=== PATIENT | female | born 1980 | race Caucasian/White ===

== ENCOUNTER 2017-12-07 14:18 | Emergency (ER) | payer OTHER ==
[2017-12-07] MEDS ORDERED: SODIUM CHLORIDE 0.9% 1,000 ML IV ONE (18:32)
[2017-12-07 18:52] LABS: Basophils # (A) 0.1 k/uL (0-0.2); Basophils % (A) 1 %; Eosinophils # (A) 0.1 k/uL (0-0.7); Eosinophils % (A) 0 %; HCT 30.2 % (34.0-46.0); HGB 9.8 gm/dL (11.4-16.0); Lymphocytes # (A) 0.9 k/uL (1.0-4.8); Lymphocytes % (A) 6 %; MCH 27.5 pg (25.0-35.0); MCHC 32.4 g/dL (31.0-37.0); Mean Platelet Volume 6.8; Monocytes # (A) 0.5 k/uL (0-1.0); Monocytes % (A) 3 %; Neutrophils # (A) 13.8 k/uL (1.3-7.7); Neutrophils % (A) 89 %; Platelet Count 313 k/uL (150-450); RBC 3.56 m/uL (3.80-5.40); RDW 15.3 % (11.5-15.5); WBC 15.5 k/uL (3.8-10.6)
[2017-12-07 19:00] LABS: Calcium 8.7 mg/dL (8.4-10.2); Potassium 4.3 mmol/L (3.5-5.1)
[2017-12-07 19:33] VITALS: BP 141/64; PULSE 92; RESP 18; TEMP 99.7
--- NOTE | 2017-12-07 19:34 | XR ---
EXAMINATION TYPE: XR toes LT DATE OF EXAM: 12/07/2017 COMPARISON: 09/21/2017 HISTORY: Amputation TECHNIQUE: 3 views FINDINGS: There is soft tissue swelling of the forefoot. There is amputation of the third digit at th e level of the base of the proximal phalanx. There is significant arthritic change in the big toe. I see no focal bone destruction to suggest osteomyelitis. IMPRESSION: Significant soft tissue swelling. There is a new amputation of the third toe. No definite sign of osteomyelitis.
--- NOTE | 2017-12-07 20:02 | ED ---
General Adult HPI - General Chief complaint: Fever Stated complaint: Fever Time Seen by Provider: 12/07/17 17:16 Source: patient Mode of arrival: ambulatory Limitations: no limitations - History of Present Illness Initial comments: 36-year-old female with recent history of third phalanx indication on the left foot on 12/04/17% for evaluation of subjective fevers. She states that she was feeling feverish at work and was informed by her ID specialist Dr. Elizabeth that she should come to the ED if she should ever become febrile or have signs of infection. She states she saw him a week ago and has another appointment this . Denies taking her temperature during this time. Denies associated symptoms. - Related Data Home Medications Medication Instructions Recorded Confirmed Insulin Aspart Protam & Aspart 30 unit SQ BID-W/MEALS 10/30/17 12/07/17 [NovoLOG MIX 70-30 Flexpen] Levothyroxine Sodium [Synthroid] 175 mcg PO DAILY 10/30/17 12/07/17 Previous Rx's Medication Instructions Recorded Insulin Aspart [NovoLOG Flexpen] 8 units SQ AC-TID #0 11/07/17 metroNIDAZOLE [Flagyl] 500 mg PO Q8HR #21 tab 12/07/17 Allergies Allergy/AdvReac Type Severity Reaction Status Date / Time sulfamethoxazole Allergy Rash/Hives Verified 12/07/17 17:40 [From Bactrim] trimethoprim [From Bactrim] Allergy Rash/Hives Verified 12/07/17 17:40 Review of Systems ROS Statement: Those systems with pertinent positive or pertinent negative responses have been documented in the HPI. ROS Other: All systems not noted in ROS Statement are negative. Constitutional: Reports: fever (subjective). Denies: chills Eyes: Denies: eye pain, eye discharge ENT: Denies: ear pain, throat pain Respiratory: Denies: cough, dyspnea Cardiovascular: Denies: chest pain, palpitations Endocrine: Denies: fatigue, polydipsia, polyuria Gastrointestinal: Denies: abdominal pain, nausea, vomiting Genitourinary: Denies: urgency, dysuria Musculoskeletal: Denies: back pain, arthralgia Skin: Denies: rash, lesions Neurological: Denies: headache, weakness Psychiatric: Denies: anxiety, depression Hematological/Lymphatic: Denies: easy bleeding, easy bruising Past Medical History Past Medical History: Diabetes Mellitus, Hypertension, Thyroid Disorder Additional Past Medical History / Comment(s): bilateral leg lymphedema, sepsis from infection in left foot, sandhu on head with MRSA 2017. 11/09/17 RECENTLY DISCHARGED FROM HOSPITAL WITH INFECTION&AMPUTATION OF LEFT MIDDLE TOE. History of Any Multi-Drug Resistant Organisms: MRSA Date of last positivie culture/infection: 11/01/17 MDRO Source:: MIDDLE TOE ON LEFT FOOT. Past Surgical History: No Surgical Hx Reported Additional Past Surgical History / Comment(s): AMPUTATION OF MIDDLE TOE ON LEFT FOOT. Past Anesthesia/Blood Transfusion Reactions: No Reported Reaction Past Psychological History: Anxiety, Depression Smoking Status: Current every day smoker Past Alcohol Use History: None Reported Past Drug Use History: None Reported - Past Family History Mother Family Medical History: No Reported History General Exam Limitations: no limitations General appearance: alert, in no apparent distress Head exam: Present: atraumatic, normocephalic, normal inspection Eye exam: Present: normal appearance, PERRL, EOMI. Absent: scleral icterus, conjunctival injection, periorbital swelling ENT exam: Present: normal exam, mucous membranes moist Neck exam: Present: normal inspection. Absent: tenderness, meningismus, lymphadenopathy Respiratory exam: Present: normal lung sounds bilaterally. Absent: respiratory distress, wheezes, rales, rhonchi, stridor Cardiovascular Exam: Present: normal rhythm, tachycardia GI/Abdominal exam: Present: soft, normal bowel sounds. Absent: distended, tenderness, guarding, rebound, rigid Rectal exam: Present: deferred Extremities exam: Present: full ROM, other (amputation site is moist without surrounding erythema but there remains an open lesion that drains onto its bandages. There is no discharge expressed from the wound.). Absent: normal inspection Back exam: Present: normal inspection, full ROM Neurological exam: Present: alert, oriented X3, CN II-XII intact Psychiatric exam: Present: normal affect, normal mood Skin exam: Present: warm, dry, intact, normal color. Absent: rash Course Vital Signs 12/07/17 12/07/17 14:48 19:32 Temperature 99.6 F 99.7 F H Pulse Rate 125 H 92 Respiratory 20 18 Rate Blood Pressure 195/100 141/64 O2 Sat by Pulse 99 99 Oximetry Medical Decision Making - Medical Decision Making 36-year-old female past medical history above presented for evaluation of subjective fever. On arrival the patient is afebrile however she does continue to have some discomfort to the side indication. The bandage is removed which did have a moderate amount of discharge soaked into it. There is no cellulitis or clicks Anding erythema. Labs obtained which showed a mild leukocytosis however no other significant abnormalities. X-ray showed no signs of Cruzito myelitis. The patient was discussed with her infectious disease specialist Dr. Elizabeth who agreed with plan to discharge her home and requested that she be started on oral Flagyl. She is already receiving IV daptomycin which she should also continue taking. The patient was informed of this discussion and agreed with this plan of care. She was advised follow-up with her infectious disease specialist next week and to return if her symptoms should worsen or persist. - Lab Data Result diagrams: 12/07/17 18:40 12/07/17 18:40 Lab Results 12/07/17 12/07/17 Range/Units 18:40 18:40 WBC 15.5 H (3.8-10.6) k/uL RBC 3.56 L (3.80-5.40) m/uL Hgb 9.8 L (11.4-16.0) gm/dL Hct 30.2 L (34.0-46.0) % MCV 85.0 (80.0-100.0) fL MCH 27.5 (25.0-35.0) pg MCHC 32.4 (31.0-37.0) g/dL RDW 15.3 (11.5-15.5) % Plt Count 313 (150-450) k/uL Neutrophils % 89 % Lymphocytes % 6 % Monocytes % 3 % Eosinophils % 0 % Basophils % 1 % Neutrophils # 13.8 H (1.3-7.7) k/uL Lymphocytes # 0.9 L (1.0-4.8) k/uL Monocytes # 0.5 (0-1.0) k/uL Eosinophils # 0.1 (0-0.7) k/uL Basophils # 0.1 (0-0.2) k/uL Sodium 132 L (137-145) mmol/L Potassium 4.3 (3.5-5.1) mmol/L Chloride 99 (98-107) mmol/L Carbon Dioxide 23 (22-30) mmol/L Anion Gap 10 mmol/L BUN 45 H (7-17) mg/dL Creatinine 3.70 H (0.52-1.04) mg/dL Est GFR (MDRD) Af Amer 17 (>60 ml/min/1.73 sqM) Est GFR (MDRD) Non-Af 14 (>60 ml/min/1.73 sqM) Glucose 107 H (74-99) mg/dL Calcium 8.7 (8.4-10.2) mg/dL Disposition Clinical Impression: Leukocytosis, unspecified Disposition: HOME SELF-CARE Condition: Stable Instructions: Metronidazole (By mouth), Fever in Adults (ED) Additional Instructions: Please use medication as discussed. Please follow up with family doctor if symptoms have not improved over the next two days. Please return to the emergency room if your symptoms increase or worsen or for any other concerns. Prescriptions: metroNIDAZOLE [Flagyl] 500 mg PO Q8HR #21 tab Referrals: Anjana Dyer MD [Primary Care Provider] - 1-2 days Time of Disposition: 20:02
== END 2017-12-07 20:14 | disposition home or self-care (01) ==
LOC: EC 14:18
DX: D72.829 Elevated white blood cell count, unspecified (principal); F17.200 Nicotine dependence, unspecified, uncomplicated; E11.9 Type 2 diabetes mellitus without complications; E07.9 Disorder of thyroid, unspecified; Z86.14 Personal history of Methicillin resistant Staphylococcus aureus infection; Z79.4 Long term (current) use of insulin; Z79.899 Other long term (current) drug therapy; Z88.2 Allergy status to sulfonamides
CPT/HCPCS: 36415; 36591; 80048; 85025; 85652; 86140; 96360; 96365; 99283